=== PATIENT | female | born 1970 | race Caucasian/White ===

== ENCOUNTER 2017-02-10 21:36 | Emergency (ER) | payer OTHER ==
--- NOTE | ~2017-02-10 | CT71 ---
[facility] A Service of [facility] RADIOLOGY TEXT RESULTS PATIENT: DAVID BRUNO LOCATION: [place] : 68 UNIT #: [id number] AGE: [address]: Caroline Oneal APRN SEX: F ORDER DR: [id number] [facility] [address] [place], [place] [address] [id number] E MR#: [id number] Acc #: [id number] NAME: DAVID BRUNO : 1970 SEX: F STUDY DATE/TIME: 02/10/2017 21:48 UNIT: [facility] ROOM: STUDY DESCRIPTION: CT Head Wo Contrast Attending Physician: Caroline Oneal A.P.R.N. Ordering Physician: Caroline Oneal A.P.R.N. Primary Care Physician: Robe Davey M.D. MEDICAL IMAGING REPORT This report is preliminary unless electronic signature is present EXAM Noncontrast head CT HISTORY Fell today. Hit foot on bed rail. Complains of headaches. COMPARISON Head CT 02/10/2016. TECHNIQUE This CT examination was performed with one or more of the following radiation dose reduction techniques: automatic exposure control, adjustment of mA and/or kV according to patient size, and iterative reconstruction. FINDINGS Axial noncontrast imaging of the brain demonstrates the brain parenchyma to be normal. No evidence of mass, mass effect or midline shift. No hemorrhage or abnormal extraaxial fluid collections. Ventricles, sulci and basilar cisterns appear normal. Bony calvarium, skull base, mastoid, sinuses unremarkable. IMPRESSION Negative noncontrast head CT. Dictated by... Ariella Patel M.D. THIS IS AN ELECTRONICALLY VERIFIED REPORT Ariella Patel M.D. at 02/11/2017 8:43 PM JMS/demonds [facility] A Service of [facility] & [facility] RADIOLOGY TEXT RESULTS PATIENT: DAVID BRUNO LOCATION: [facility] : [birth year] UNIT #: [id number] AGE: [address]: Caroline Oneal APRN SEX: F ORDER DR: TD: 02/11/2017 12:01 JOB #: [id number] MEDICAL IMAGING REPORT COPY
--- NOTE | ~2017-02-10 | CR127 ---
[facility] A Service of [facility] RADIOLOGY TEXT RESULTS PATIENT: DAVID BRUNO LOCATION: [facility] : 68 UNIT #: [id number] AGE: [address]: Caroline Oneal APRN SEX: F ORDER DR: [id number] [facility] [address] [place], [place] [address] [id number] E MR#: [id number] Acc #: [id number] NAME: DAVID BRUNO : 1970 SEX: F STUDY DATE/TIME: 02/10/2017 21:39 UNIT: [facility] ROOM: STUDY DESCRIPTION: CR Foot Complete Min 3 View Rt Attending Physician: Caroline Oneal A.P.R.N. Ordering Physician: Caroline Oneal A.P.R.N. Primary Care Physician: Robe Davey M.D. MEDICAL IMAGING REPORT This report is preliminary unless electronic signature is present EXAM Right foot, 3 views. HISTORY Anterior foot pain; fell today. FINDINGS 3 views of the right foot demonstrate a fracture of the base of the proximal phalanx of the 5th toe. This has shown some healing when compared to the patient's study of 12/18/2016. No other fractures are identified. Bone mineralization appears normal. Mild soft tissue swelling about the 5th toe. Dictated by... Ariella Patel M.D. THIS IS AN ELECTRONICALLY VERIFIED REPORT Ariella Patel M.D. at 02/11/2017 8:43 PM Kenneth TD: 02/11/2017 11:18 JOB #: [id number] MEDICAL IMAGING REPORT COPY
[~2017-02-10 21:36] MED LIST: ACCUPRIL PO; ACCUPRIL10 MG; ACETAMINOPHEN PO; ACIPHEX20 MG PO; ALBUTEROL17 GM INH; AMITRYPTYLINE PO; AMOXICILLIN PO; AMOXICILLIN500 M1 PO; AMOXIL500 MG PO; ANEXSIA 7.5/3251 TA1 PO; ANTIVERT PO; ASPIRIN PO; ASPIRINEC PO; BACTRIM DS TABL1 TA1 PO; BACTRIM DS TABL1 TA2 PO; BACTRIM DS TABL1 TAB PO; BENTYL20 MG PO; BENZONATATE PO; CELEXA PO; CIPRO PO; CLINDAMYCIN HC300 MG PO; COLACE PO; COREG PO; COREG3.125 MG PO; CRESTOR PO; DARVOCET-N 1001 TA1 DOB; DIFLUCAN100 MG PO; FERROUS SULFATE PO; FLAGYL PO; FLEXERIL PO; FLEXERIL10 MG PO; FUROSEMIDE40 MG PO; GABAPENTIN PO; GABAPENTIN800 MG PO; GLIPIZIDE PO; GLIPIZIDE10 MG PO; GLUCOPHAGE PO; GLUCOPHAGE500 M1 PO; GLUCOPHAGE500 MG PO; GLUCOTROL10 MG PO; GUAIFENESIN600 M1 PO; HYDROCODON-ACE1 EAC9 PO; HYDROCODON-ACE1 EACH PO; IBUPROFEN; JANUVIA PO; KCL PO; KEFLEX PO; KEFLEX250 M1 PO; KEFLEX500 MG PO; KLONOPIN1 MG PO; LASIX PO; LISINOPRIL PO; LISINOPRIL10 MG PO; LORTAB 5/500 TA1 TA1 PO; LORTAB 5/500 TA1 TA2 PO; LORTAB 7.5-5001 TAB PO; METFORMIN HCL500 M1 PO; METFORMIN PO; NAPROSYN500 MG PO; NAPROXEN500 M1 PO; NEURONTIN800 MG DOB; OMEPRAZOLE40 MG PO; PEN-VEE K PO; PENICILLIN PO; PEPCID AC20 M2 PO; PHENERGAN W/CO120 ML PO; PHENERGAN25 M1 PO; PHENERGAN25 MG PO; PREDNISONE PO; PREPARATION H O60 GM; PROCTOFOAM-HC F10 GM; PROVERA10 MG PO; ROBITUSSIN A-C-S1 ML DOB; SEROQUEL; STARLIX PO; TESSALON200 MG PO; TRICOR; TRICOR PO; ULTRAM PO; VIBRAMYCIN100 M1 PO; VICODIN 5/1 TAB 5/50 PO; VICODIN 5/500 T1 TAB PO; ZANTAC PO; ZANTAC150 M1 PO; ZESTRIL40 MG PO; ZITHROMAX PO; ZITHROMAX1 G/PKT PO; ZOFRAN ODT4 MG PO; ZOVIRAX15 GM TOP; [UNRECOGNIZED DRUG - OTHER] PO
== END 2017-02-10 23:30 | disposition home or self-care (01) ==
LOC: CFTX 21:36
DX: S00.83XA Contusion of other part of head, initial encounter (principal); S90.31XA Contusion of right foot, initial encounter; K21.9 Gastro-esophageal reflux disease without esophagitis; Z88.8 Allergy status to other drugs, medicaments and biological substances; Z91.013 Allergy to seafood; Z91.040 Latex allergy status; W01.0XXA Fall on same level from slipping, tripping and stumbling without subsequent striking against object, initial encounter; Y92.009 Unspecified place in unspecified non-institutional (private) residence as the place of occurrence of the external cause
CPT/HCPCS: 29540; 70450; 73630; 99284

== ENCOUNTER 2017-04-04 23:55 | Emergency (ER) | payer OTHER ==
--- NOTE | ~2017-04-04 | CR72 ---
[facility] A Service of [facility] & [facility] RADIOLOGY TEXT RESULTS PATIENT: DAVID BRUNO LOCATION: [facility] : 68 UNIT #: [id number] AGE: [address]: Chucky Lr MD SEX: F ORDER DR: [id number] [facility] [address] [place], [place] [address] [id number] E MR#: [id number] Acc #: [id number] NAME: DAVID BRUNO : 1970 SEX: F STUDY DATE/TIME: 04/05/2017 0:53 UNIT: [facility] ROOM: STUDY DESCRIPTION: CR Chest Single View Portable Attending Physician: Chucky Lr M.D. Ordering Physician: Geni Sanders M.D. Primary Care Physician: Robe Davey M.D. MEDICAL IMAGING REPORT This report is preliminary unless electronic signature is present EXAM Portable chest. HISTORY Chest pain, epigastric pain x3 days COMPARISON 02/10/2016 FINDINGS Portable view of the chest demonstrates lordotic positioning. No infiltrates or effusions. Hilar and parenchymal calcifications suggest old granulomatous disease. Patient is post median sternotomy. Heart size unremarkable. Overall no acute findings. Dictated by... Ariella Patel M.D. THIS IS AN ELECTRONICALLY VERIFIED REPORT Ariella Patel M.D. at 04/05/2017 9:59 PM PITER/flakita TD: 04/05/2017 09:49 JOB #: [id number] MEDICAL IMAGING REPORT Page 1 of 1 COPY
--- NOTE | ~2017-04-04 | EKG ---
PATIENT: DAVID BRUNO UNIT #: [id number] Ventricular Rate: 103 BPM Atrial Rate: 103 BPM P-R Interval: 172 ms QRS Duration: 108 ms Q-T Interval: 328 ms QTC Calculation(Bezet): 429 ms P [place]: 73 degrees Calculated R [place]: 30 degrees Calculated T [place]: 155 degrees Diagnosis Line: Sinus tachycardia Diagnosis Line: Minimal voltage criteria for LVH, may be normal Diagnosis Line: variant Diagnosis Line: ST and T wave abnormality, consider inferior Diagnosis Line: ischemia Diagnosis Line: ST and T wave abnormality, consider anterolateral Diagnosis Line: ischemia Diagnosis Line: Abnormal ECG Diagnosis Line: No previous ECGs available Diagnosis Line: Confirmed by LUDWIN LIN MD ([id number]) on 04/07/2017 Diagnosis Line: 9:43:27 AM INTERPRETING MD: DELIA TOURE
[2017-04-05 00:51] LABS: BASOPHIL# 0.1 X10e3 (0-0.3); BASOPHIL% 0.5 % (0-2.5); EOSINOPHIL# 0.2 X10e3 (0-0.7); HEMATOCRIT 36.9 % (35.0-45.0); HEMOGLOBIN 12.3 gm/dL (12.0-16.0); LYMPHOCYTE# 3.9 X10e3 (1.0-3.5); LYMPHOCYTE% 38.3 % (17.0-45.0); MEAN CELL VOLUME 93.5 FL (83-96); MEAN CORPUSCULAR HGB CONC 33.2 g/dL (30-36); MEAN PLATELET VOLUME 7.5 FL (6.5-11.5); MONOCYTE# 0.4 X10e3 (0-1.0); MONOCYTE% 4.3 % (3.0-12.0); NEUTROPHIL# 5.6 X10e3 (1.5-7.1); NEUTROPHIL% 54.9 % (40-75); PLATELET COUNT 354 X10e3 (140-420); RED BLOOD COUNT 3.95 X10e (3.90-5.30); RED CELL DISTRIBUTION WIDTH 14.4 % (11.0-15.5); WHITE BLOOD COUNT 10.3 X10e3 (4.0-10.5)
[2017-04-05 00:55] LABS: POC - CKMB 2.6 ng/mL (0.0-7.9); POC - TROPONIN <0.05 ng/mL (<=0.05)
[2017-04-05 00:55] LABS: DIFF IND NO
[2017-04-05 01:22] LABS: ALBUMIN SERUM 3.9 g/dL (3.5-5.0); BUN/CREATININE RATIO 12.22; CALCIUM SERUM 9.5 mg/dL (8.4-10.2); CREATININE SERUM 0.9 mg/dL (0.6-1.4); GLOM FILT RATE Estimated 75.7 mL/min (>60); POTASSIUM 3.7 mmol/L (3.5-5.1); PROTEIN TOTAL SERUM 7.6 g/dL (6.0-8.3)
[2017-04-05 01:23] LABS: BILIRUBIN, DIRECT 0.1 mg/dL (0.0-0.2); BILIRUBIN,TOTAL 0.1 mg/dL (0.2-2.0)
[2017-04-05 03:17] LABS: AMYLASE 16 U/L (0-46); LIPASE 27 U/L (22-51)
[2017-04-05 03:21] LABS: POC - CKMB 2.9 ng/mL (0.0-7.9); POC - TROPONIN <0.05 ng/mL (<=0.05)
== END 2017-04-05 04:30 | disposition home or self-care (01) ==
LOC: CED 23:55
PROVIDERS: Emergency Medicine
DX: J40 Bronchitis, not specified as acute or chronic (principal); K43.9 Ventral hernia without obstruction or gangrene; R73.9 Hyperglycemia, unspecified; E78.5 Hyperlipidemia, unspecified; I10 Essential (primary) hypertension; F17.200 Nicotine dependence, unspecified, uncomplicated; Z91.040 Latex allergy status; Z91.041 Radiographic dye allergy status; Z88.8 Allergy status to other drugs, medicaments and biological substances
CPT/HCPCS: 36415; 71010; 80048; 80076; 82150; 82553; 83690; 84484; 85025; 85610; 93005; 94640; 96361; 96374; 96375; 99284; C9113; J2270; J2930

== ENCOUNTER 2017-04-08 22:26 | Emergency (ER) | payer OTHER ==
--- NOTE | ~2017-04-08 | EKG ---
PATIENT: DAVID BRUNO UNIT #: [id number] Ventricular Rate: 90 BPM Atrial Rate: 90 BPM P-R Interval: 162 ms QRS Duration: 106 ms Q-T Interval: 394 ms QTC Calculation(Bezet): 481 ms P [place]: 50 degrees Calculated R [place]: 27 degrees Calculated T [place]: 124 degrees Diagnosis Line: Normal sinus rhythm Diagnosis Line: Left ventricular hypertrophy with repolarization Diagnosis Line: abnormality Diagnosis Line: Inferior infarct , possibly acute Diagnosis Line: ACUTE NC / STEMI Diagnosis Line: Consider right ventricular involvement in acute Diagnosis Line: inferior infarct Diagnosis Line: Abnormal ECG Diagnosis Line: When compared with ECG of 04-APR-2017 23:30, Diagnosis Line: Inferior infarct is now Present Diagnosis Line: ST elevation now present in Inferior leads Diagnosis Line: Confirmed by LUDWIN LIN MD ([id number]) on 04/09/2017 Diagnosis Line: 8:08:10 PM INTERPRETING MD: DELIA TOURE
--- NOTE | ~2017-04-08 | CR72 ---
[facility] A Service of [facility] & [facility] RADIOLOGY TEXT RESULTS PATIENT: DAVID BRUNO LOCATION: [facility] : 68 UNIT #: [id number] AGE: [address]: Eduardo Dong MD SEX: F ORDER DR: [id number] [facility] [address] [place], [place] [address] [id number] E MR#: [id number] Acc #: [id number] NAME: DAVID BRUNO : 1970 SEX: F STUDY DATE/TIME: 04/08/2017 23:19 UNIT: [facility] ROOM: STUDY DESCRIPTION: CR Chest Single View Portable Attending Physician: Eduardo Dong M.D. Ordering Physician: Eduardo Dong M.D. Primary Care Physician: Robe Davey M.D. MEDICAL IMAGING REPORT This report is preliminary unless electronic signature is present EXAM Portable chest HISTORY Chest pain, shortness of air and cough for 4 days. COMPARISON 04/05/2017 FINDINGS Portable view of the chest demonstrates moderate lung volumes satisfactory technique. Subsegmental atelectasis noted in the right midlung zone. No focal airspace disease or consolidation. Heart size within normal limits. Patient is post median sternotomy. No effusions. No pneumothorax. Dictated by... Ariella Patel M.D. THIS IS AN ELECTRONICALLY VERIFIED REPORT Ariella Patel M.D. at 04/09/2017 5:18 AM PITER/jaciel TD: 04/09/2017 03:05 JOB #: [id number] MEDICAL IMAGING REPORT Page 1 of 1 COPY
[2017-04-08 23:24] LABS: POC - CKMB 5.1 ng/mL (0.0-7.9); POC - TROPONIN 0.55 ng/mL (<=0.05)
[2017-04-08 23:27] LABS: BASOPHIL# 0.1 X10e3 (0-0.3); BASOPHIL% 0.6 % (0-2.5); EOSINOPHIL# 0.2 X10e3 (0-0.7); EOSINOPHIL% 2.1 % (0.0-7.0); HEMATOCRIT 38.7 % (35.0-45.0); HEMOGLOBIN 12.7 gm/dL (12.0-16.0); LYMPHOCYTE% 27.4 % (17.0-45.0); MEAN CELL VOLUME 93.3 FL (83-96); MEAN CORPUSCULAR HEMOGLOBIN 30.7 PG (28-34); MEAN CORPUSCULAR HGB CONC 32.9 g/dL (30-36); MEAN PLATELET VOLUME 7.7 FL (6.5-11.5); MONOCYTE# 0.5 X10e3 (0-1.0); MONOCYTE% 4.9 % (3.0-12.0); NEUTROPHIL# 7.1 X10e3 (1.5-7.1); PLATELET COUNT 333 X10e3 (140-420); RED BLOOD COUNT 4.15 X10e (3.90-5.30); RED CELL DISTRIBUTION WIDTH 14.4 % (11.0-15.5); WHITE BLOOD COUNT 10.9 X10e3 (4.0-10.5)
[2017-04-08 23:28] LABS: DIFF IND NO
[2017-04-08 23:41] LABS: INR 0.9; PARTIAL THROMBOPLASTIN TIME 24.4 SECONDS (23.5-31.3); PROTHROMBIN TIME (PATIENT) 9.6 SECONDS (9.6-11.5)
[2017-04-08 23:50] LABS: ALKALINE PHOSPHATASE 114 U/L (32-92); ALT (SGPT) 22 U/L (10-40); AST (SGOT) 20 U/L (10-42); BILIRUBIN, DIRECT <0.1 mg/dL (0.0-0.2); BILIRUBIN,INDIRECT 0.1 mg/dL (0.0-0.9); BILIRUBIN,TOTAL 0.2 mg/dL (0.2-2.0); BLOOD UREA NITROGEN 20 mg/dL (9-23); CALCIUM SERUM 9.1 mg/dL (8.4-10.2); CARBON DIOXIDE 26 mmol/L (22-31); CHLORIDE 95 mmol/L (100-111); GLOM FILT RATE Estimated 66.6 mL/min (>60); GLUCOSE FASTING 309 mg/dL (70-110); POTASSIUM 3.5 mmol/L (3.5-5.1); PROTEIN TOTAL SERUM 7.9 g/dL (6.0-8.3); SODIUM 131 mmol/L (135-145)
== END 2017-04-08 23:24 | disposition short-term general hospital (02) ==
LOC: CED 22:26 → CFTX 23:00 → CED 23:00
PROVIDERS: Emergency Medicine
DX: I21.3 ST elevation (STEMI) myocardial infarction of unspecified site (principal); J44.9 Chronic obstructive pulmonary disease, unspecified; F17.210 Nicotine dependence, cigarettes, uncomplicated; Z88.6 Allergy status to analgesic agent; Z91.013 Allergy to seafood; Z88.8 Allergy status to other drugs, medicaments and biological substances
CPT/HCPCS: 36415; 71010; 80048; 80076; 82553; 84484; 85025; 85610; 85730; 93005; 96374; 96375; 99291; J1644; J2930

== ENCOUNTER 2017-04-12 00:50 | Emergency (ER) | payer OTHER ==
--- NOTE | ~2017-04-12 | EKG ---
PATIENT: DAVID BRUNO UNIT #: [id number] Ventricular Rate: 65 BPM Atrial Rate: 65 BPM P-R Interval: 196 ms QRS Duration: 110 ms Q-T Interval: 440 ms QTC Calculation(Bezet): 457 ms P [place]: 49 degrees Calculated R [place]: 1 degrees Calculated T [place]: 126 degrees Diagnosis Line: Normal sinus rhythm Diagnosis Line: Inferior infarct , age undetermined Diagnosis Line: ST and T wave abnormality, consider anterolateral Diagnosis Line: ischemia Diagnosis Line: Abnormal ECG Diagnosis Line: No previous ECGs available Diagnosis Line: Confirmed by DARCY LAKHANI MD ([id number]) on Diagnosis Line: 04/13/2017 1:28:48 PM INTERPRETING MD: KAR TOURE
[2017-04-12 03:23] LABS: AMPHETAMINE POS (NEG); BARBITURATES NEG (NEG); BENZODIAZEPINES POS (NEG); COCAINE POS (NEG); MARIJUANA NEG (NEG); OPIATES POS (NEG); TRICYCLIC ANTIDEPRESSANTS POS (NEG); U METHADONE NEG (NEG)
[2017-04-12 03:34] LABS: ALBUMIN SERUM 3.9 g/dL (3.5-5.0); ALKALINE PHOSPHATASE 88 U/L (32-92); ALT (SGPT) 21 U/L (10-40); AST (SGOT) 18 U/L (10-42); BILIRUBIN,TOTAL 0.2 mg/dL (0.2-2.0); BLOOD UREA NITROGEN 15 mg/dL (9-23); BUN/CREATININE RATIO 21.42; CALCIUM SERUM 8.8 mg/dL (8.4-10.2); CARBON DIOXIDE 23 mmol/L (22-31); CHLORIDE 98 mmol/L (100-111); CREATININE SERUM 0.7 mg/dL (0.6-1.4); GLOM FILT RATE Estimated 102.5 mL/min (>60); GLUCOSE FASTING 274 mg/dL (70-110); POTASSIUM 4.1 mmol/L (3.5-5.1); PROTEIN TOTAL SERUM 7.3 g/dL (6.0-8.3); SALICYLATE <4.0 mg/dL; SODIUM 130 mmol/L (135-145)
[2017-04-12 03:36] LABS: ACETAMINOPHEN <10 ug/mL; ALCOHOL BLOOD <5 mg/dL (0); BILIRUBIN, DIRECT <0.1 mg/dL (0.0-0.2); BILIRUBIN,INDIRECT 0.1 mg/dL (0.0-0.9)
== END 2017-04-12 04:53 | disposition home or self-care (01) ==
LOC: CED 00:50
PROVIDERS: Emergency Medicine
DX: T40.1X1A Poisoning by heroin, accidental (unintentional), initial encounter (principal); F19.10 Other psychoactive substance abuse, uncomplicated; J44.9 Chronic obstructive pulmonary disease, unspecified; I25.2 Old myocardial infarction; Z95.1 Presence of aortocoronary bypass graft; F17.200 Nicotine dependence, unspecified, uncomplicated; Z91.013 Allergy to seafood; Z88.8 Allergy status to other drugs, medicaments and biological substances; Z91.040 Latex allergy status
CPT/HCPCS: 36415; 51701; 80048; 80076; 80307; 93005; 96360; 99284; G0480; J2405